=== PATIENT | male | born 1970 | race Caucasian/White ===

== ENCOUNTER 2016-11-20 08:18 | Emergency (ER) | payer OTHER, MEDICAID ==
[~2016-11-20] VITALS: Ht 165.1 cm; Wt 68.0 kg
[2016-11-20 08:50] VITALS: BP 115/59
[2016-11-20 08:58] LABS: Basophils # (auto) 0 uL; Basophils % (auto) 0.1 % (0.0-2.0); CONDITION Y; Eosinophils # (auto) 0.1 uL; Eosinophils % (auto) 0.5 % (0.0-7.0); Hematocrit 43.5 % (41.0-53.0); Hemoglobin 14.7 g/dL (13.5-17.5); Lymphocytes # (auto) 0.8 uL; Lymphocytes % (auto) 5.6 % (10.0-50.0); Mean Corpuscular Hemoglobin 32.8 pg (28.0-32.0); Mean Corpuscular Hgb Conc. 33.9 g/dL (32.0-36.0); Mean Corpuscular Volume 96.9 fL (80.0-100.0); Monocytes % (auto) 6.8 % (0.0-12.0); Neutrophils # (auto) 12.3 uL; Platelet Count (auto) 192 10^3/uL (140-450); Red Cell Distribution Width 13.7 % (11.6-16.0); White Blood Cell 14.1 10^3/uL (4.4-10.8)
[2016-11-20 09:06] LABS: Albumin 3.6 g/dL (3.4-5.0); Anion Gap 7 (5-15); Aspartate Aminotransferase 11 U/L (15-37); BUN/Creatinine Ratio 12.2; Blood Urea Nitrogen 11 mg/dL (7-18); Calcium 7.5 mg/dL (8.5-10.1); Carbon Dioxide 27 mmol/L (21-32); Chloride 108 mmol/L (98-107); GFR African American 116 mL/min; GFR Non-African American 96 mL/min; Glucose 88 mg/dL (74-106); Magnesium 1.8 mg/dL (1.6-2.6); Potassium 3.9 mmol/L (3.5-5.1); Sodium 142 mmol/L (136-145)
[2016-11-20 09:11] LABS: Alkaline Phosphatase 72 U/L (45-117); Bilirubin, Total 0.5 mg/dL (0.2-1.0); Total Protein 7.2 g/dL (6.4-8.2)
[2016-11-20] MEDS ORDERED: SODIUM CHLORIDE 0.9% 1,000 ML IV ONE (09:15)
[2016-11-20] MEDS ORDERED: LEVOFLOXACIN 500MG 100 ML IV ONE (09:45)
== END 2016-11-20 11:30 | disposition home or self-care (01) ==
LOC: ER 08:18
DX: J18.1 Lobar pneumonia, unspecified organism (principal)
CPT/HCPCS: 36415; 71010; 80053; 83735; 84484; 85025; 93005; 94761; 96365; 96366; 99285; J1956; J7030